=== PATIENT | male | born 1935 | race Caucasian/White ===

== ENCOUNTER 2018-09-06 15:26 | Outpatient (CLI) | payer MEDICARE, OTHER ==
--- NOTE | 2018-09-06 16:18 | RAD ---
PA AND LATERAL CHEST: Date: 09/06/18 HISTORY: Shortness of breath. Fatigue. Cough. COMPARISON: 01/04/18. FINDINGS: Cardiac silhouette is mildly enlarged. There is slight blunting of each lateral costophrenic angle, w hich may be related to tiny bilateral pleural effusions or mild pleural and parenchymal scarring. Vas cular calcifications are seen in the thoracic aorta. There is again right convex scoliosis with degen erative changes in the spine. IMPRESSION: 1. Suggestion of small bilateral pleural effusions and associated atelectasis. 2. Cardiomegaly without overt CHF. POS: [facility]
== END 2018-09-06 15:27 | disposition home or self-care (01) ==
LOC: BICRAD 15:26
PROVIDERS: ATTEND Specialist
DX: R06.02 Shortness of breath (principal); R06.00 Dyspnea, unspecified; R05 Cough; R53.82 Chronic fatigue, unspecified; I51.7 Cardiomegaly
CPT/HCPCS: 36415; 71046; 80048; 83880; 85027

== ENCOUNTER 2019-09-04 11:31 | Inpatient (IN) | payer MEDICARE, OTHER ==
[2019-09-04 12:21] LABS: #Lymphocytes 0.9 thou/uL (1.20-3.40); #Monocytes 0.8 thou/uL (0.11-0.59); #Neutrophils 10.6 thou/uL (1.40-6.50); %Eosinophils 0.3 % (0.0-10.0); %Lymphocytes 7.1 % (21.0-51.0); %Monocytes 6.2 % (0.0-10.0); %Neutrophils 86.4 % (42.0-75.0); Hemoglobin 9.4 g/dL (14.0-18.0); Mean Corpuscular HGB CONC 33.3 g/dL (32.0-36.0); Mean Corpuscular Hemoglobin 33.6 pg (27.0-31.0); Mean Platelet Volume 8.3 fL (7.4-10.4); Platelet Count 180 thou/uL (130-400); RBC Distribution Width 13.6 % (11.5-14.5); White Blood Cell (WBC) Count 12.2 thou/uL (4.8-10.8)
[2019-09-04] MEDS ORDERED: ADMIXTURE FEE IV SCH (12:30)
[2019-09-04] MEDS ORDERED: [UNRECOGNIZED DRUG - OTHER] IV SCH (12:30)
[2019-09-04] MEDS ORDERED: HUM PROTHROMBIN CPLX IV SCH (12:30)
[2019-09-04 12:36] LABS: INR-International Normal Ratio 2.6; PTT 43.4 SEC (22.9-36.1); Prothrombin Time 27.8 SEC (12.0-14.7)
[2019-09-04 12:39] LABS: ALT (SGPT) 10 U/L (8-55); AST (SGOT) 10 U/L (5-34); Albumin 3.2 g/dL (3.4-4.8); Alkaline Phosphatase 83 U/L (40-110); Anion Gap 12 mmol/L (10-20); BUN (Urea Nitrogen) 94 mg/dL (8.4-25.7); Bilirubin, Total 0.5 mg/dL (0.2-1.2); Calc. Creatinine Clearance 0 mL/min (70-130); Calcium 8.6 mg/dL (7.8-10.44); Carbon Dioxide 20 mmol/L (23-31); Chloride 109 mmol/L (98-107); Estimated GFR-MDRD 38; Globulin 2.1 g/dL (2.4-3.5); Glucose 125 mg/dL (83-110); Potassium 4.5 mmol/L (3.5-5.1); Protein, Total 5.3 g/dL (5.8-8.1); Sodium 136 mmol/L (136-145)
[2019-09-04] MEDS ORDERED: Pantoprazole 40 MG VIAL ONE (13:12)
[2019-09-04] MEDS ORDERED: Ondansetron PF 4 MG/2 ML Vial IVP PRN (16:30)
[2019-09-04] MEDS ORDERED: Ondansetron ODT 4 MG TAB SL PRN (16:30)
[2019-09-04 20:15] LABS: #Lymphocytes 1.2 thou/uL (1.20-3.40); #Monocytes 1.3 thou/uL (0.11-0.59); %Basophils 0.1 % (0.0-1.0); %Eosinophils 0.1 % (0.0-10.0); %Lymphocytes 7.7 % (21.0-51.0); %Monocytes 8.6 % (0.0-10.0); %Neutrophils 83.5 % (42.0-75.0); Hemoglobin 8.1 g/dL (14.0-18.0); Mean Corpuscular HGB CONC 33.6 g/dL (32.0-36.0); Mean Corpuscular Hemoglobin 33.8 pg (27.0-31.0); Mean Platelet Volume 8.6 fL (7.4-10.4); Platelet Count 168 thou/uL (130-400); RBC Distribution Width 13.8 % (11.5-14.5); White Blood Cell (WBC) Count 15.6 thou/uL (4.8-10.8)
--- NOTE | 2019-09-04 20:33 | PDOC.EVN ---
Event Note - Event Note Event Note: [id number] HP
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
[2019-09-04] MEDS: Acetaminophen 325 MG TAB PO PRN (22:10)
[2019-09-04] MEDS: Pantoprazole 80 MG in Sodium Chloride 0.9% 100 ML IVP SCH (23:40)
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
[2019-09-04] MEDS: Zolpidem Tartrate 5 MG TAB PO PRN (23:41)
[2019-09-05 06:46] LABS: INR-International Normal Ratio 1.4; Prothrombin Time 17.3 SEC (12.0-14.7)
[2019-09-05 06:48] LABS: #Neutrophils 14.5 thou/uL (1.40-6.50); %Basophils 0.1 % (0.0-1.0); %Eosinophils 0.2 % (0.0-10.0); %Lymphocytes 6.3 % (21.0-51.0); %Neutrophils 87.4 % (42.0-75.0); Hemoglobin 8.5 g/dL (14.0-18.0); Mean Corpuscular HGB CONC 34.7 g/dL (32.0-36.0); Mean Corpuscular Hemoglobin 33.9 pg (27.0-31.0); Mean Corpuscular Volume 97.7 fL (78.0-98.0); Mean Platelet Volume 8.7 fL (7.4-10.4); Platelet Count 163 thou/uL (130-400); RBC Distribution Width 14.2 % (11.5-14.5); White Blood Cell (WBC) Count 16.6 thou/uL (4.8-10.8)
[2019-09-05 07:07] LABS: Anion Gap 12 mmol/L (10-20); BUN (Urea Nitrogen) 90 mg/dL (8.4-25.7); Calc. Creatinine Clearance 34 mL/min (70-130); Calcium 8.2 mg/dL (7.8-10.44); Carbon Dioxide 18 mmol/L (23-31); Chloride 112 mmol/L (98-107); Estimated GFR-MDRD 39; Glucose 157 mg/dL (83-110); Potassium 4.7 mmol/L (3.5-5.1); Sodium 137 mmol/L (136-145)
[2019-09-05] MEDS ORDERED: FLU VACC TS2019-20(65YR UP)/PF 180 MCG/0.5 ML SYRINGE IM ONE (09:00)
[2019-09-05] MEDS ORDERED: Prevnar 13-Val Conj/PF 0.5 ML SYRINGE IM ONE (09:00)
[2019-09-05] MEDS: Pantoprazole 80 MG in Sodium Chloride 0.9% 100 ML IVP SCH ×2 (09:01→19:43)
[2019-09-05] MEDS: Acetaminophen 325 MG TAB PO PRN ×2 (09:02→14:19)
--- NOTE | 2019-09-05 15:55 | PDOC.EVN ---
Event Note - Event Note Event Note: Devon pedro pablo called for patient. Patient was sitting up on toilet having a bowel movement and reported a black stool. He instantly went pale and was unresponsive and patient was staring off into space. DEVON pedro pablo called by tech. Patient had very weak pulses on initial palpation, was tachypneic and was placed on 2L of oxygen. He was immediately laidd down into the bed after which the patient started talking and became responsive. Vitals: BP 103/68, HR 88, 100% room air, temp 97.5 General: alert, awake, oriented times three. Patient is more pink now CVS: RRR, no murmurs, rubs, gallops Lungs: CTAB Abdomen: + BS, mild LLQ tenderness, nondistended. Extremities: 2+ dorsal pulses Vasovagal syncope: patient improved s/p laying down. Will check CBC, CMP, lactic acid. Hospitalist was informed about devon chamorro
[2019-09-05] MEDS ORDERED: NAPROXEN SOD PO PRN (16:00)
[2019-09-05] MEDS ORDERED: DIPHENHYDRAMINE PO PRN (16:00)
--- NOTE | 2019-09-05 16:19 | PDOC.HOSPP ---
- Subjective Encounter Date: 09/05/19 Encounter Time: 16:17 Subjective: patient was doing okay this morning but had an episode of GI bleed/black stool and developped a vagal episode, Dr. Barnes at the bedside evaluated already - Objective Vital Signs & Weight: Vital Signs (12 hours) Temp Pulse Resp BP Pulse Ox 09/05/19 11:22 98.4 F 92 20 133/86 98 09/05/19 07:35 98.4 F 90 22 H 146/85 H 98 Weight Weight 165 lb 5.547 oz I&O: 09/04/19 09/05/19 09/06/19 06:59 06:59 06:59 Intake Total 760 Output Total 200 Balance 560 Result Diagrams: 09/05/19 05:34 09/05/19 05:34 Additional Labs: Accuchecks 09/05/19 15:46 POC Glucose 145 H Hospitalist ROS - Medication Medications: Active Medications Generic Name Dose Route Start Last Admin Trade Name Freq PRN Reason Stop Dose Admin Acetaminophen 650 mg 09/04/19 21:13 09/05/19 14:19 Tylenol PO 650 mg Q6H PRN Administration Mild Pain (1-3) Pantoprazole Sodium 80 mg/ 100 mls @ 10 mls/hr 09/04/19 13:15 09/05/19 09:01 Sodium Chloride IVP 100 mls INF NENA Administration Zolpidem Tartrate 5 mg 09/04/19 23:09 09/04/19 23:41 Ambien PO 5 mg HS PRN Administration Insomnia - Exam General Appearance: awake alert Eye: PERRL, anicteric sclera, scleral icterus ENT: dry oral mucosa Neck: supple, symmetric, no JVD, no thyromegaly, no lymphadenopathy, no carotid bruit, JVD Heart: RRR, no murmur, no gallops, no rubs, normal peripheral pulses, irregular , diminshed peripheral pulses, murmur present, II/IV, III/IV Respiratory: CTAB, no wheezes, no rales, no ronchi, normal chest expansion, no tachypnea, normal percussion, rales, rhonchi, tachypneic, wheezes Gastrointestinal: soft, non-tender, non-distended, normal bowel sounds, no palpable masses, no hepatomegaly, no splenomegaly, no bruit, no guarding, no rigidity, tender to palpation, distended, diminished bowl sounds, voluntary guarding Extremities: no cyanosis, no clubbing, no edema, 1+ LE edema, 2+ LE edema, clubbing Skin: normal turgor, no lesions, no rashes, tenting Hosp A/P (1) GI bleed Code(s): K92.2 - GASTROINTESTINAL HEMORRHAGE, UNSPECIFIED Status: Acute - Plan GI notified, H/H checked, held 2 units of PRBC, transfuse inf needed. Transferred to IMU
[2019-09-05 16:27] LABS: ALT (SGPT) 11 U/L (8-55); AST (SGOT) 13 U/L (5-34); Albumin 3.2 g/dL (3.4-4.8); Alkaline Phosphatase 75 U/L (40-110); Anion Gap 18 mmol/L (10-20); BUN (Urea Nitrogen) 88 mg/dL (8.4-25.7); Bilirubin, Total 0.7 mg/dL (0.2-1.2); Calc. Creatinine Clearance 29 mL/min (70-130); Calcium 8.3 mg/dL (7.8-10.44); Carbon Dioxide 14 mmol/L (23-31); Chloride 112 mmol/L (98-107); Estimated GFR-MDRD 33; Globulin 2.1 g/dL (2.4-3.5); Glucose 147 mg/dL (83-110); Potassium 4.9 mmol/L (3.5-5.1); Protein, Total 5.3 g/dL (5.8-8.1); Sodium 139 mmol/L (136-145)
[2019-09-05 16:35] LABS: Lactic Acid 6.6 mmol/L (0.5-2.2)
[2019-09-05 16:36] LABS: Hemoglobin 8.4 g/dL (14.0-18.0); Mean Corpuscular HGB CONC 33.7 g/dL (32.0-36.0); Mean Corpuscular Hemoglobin 33.7 pg (27.0-31.0); Mean Platelet Volume 8.4 fL (7.4-10.4); Platelet Count 181 thou/uL (130-400); RBC Distribution Width 14.8 % (11.5-14.5); Red Blood Cell (RBC) Count 2.48 mill/uL (4.70-6.10); White Blood Cell (WBC) Count 21.5 thou/uL (4.8-10.8)
[2019-09-05] MEDS: Mometasone 100 MCG HFA INHALER INH SCH (19:16)
[2019-09-05] MEDS: Carvedilol 6.25 MG TAB PO SCH (20:55)
[2019-09-05] MEDS: Melatonin 3 MG TAB PO SCH (20:56)
[2019-09-05] MEDS: Zolpidem Tartrate 5 MG TAB PO PRN (20:56)
[2019-09-05] MEDS ORDERED: VALERIAN ROOT PO SCH (21:00)
[2019-09-05] MEDS ORDERED: BILBERRY PO SCH (21:00)
--- NOTE | 2019-09-05 23:00 | PRG ---
DATE OF SERVICE: 09/05/2019 SUBJECTIVE: Mr. Limon passed one large black stool today. He stood up from the toilet and then had a syncopal episode, and Dontrell Auguste was called. He was transferred to the intermediate care unit. He has been doing okay since then. He has no abdominal pain. No nausea or vomiting. He is tolerating a liquid diet well. OBJECTIVE: VITAL SIGNS: Temperature 98.0, blood pressure 130/66, pulse 98. GENERAL: He is in no acute distress. He is pale. Alert and oriented x3. HEENT: Eyes have no scleral icterus. Oropharynx is clear without lesions. NECK: No cervical or supraclavicular lymphadenopathy. LUNGS: Clear to auscultation bilaterally. HEART: Regular rate and rhythm without murmur. ABDOMEN: Soft, nontender, nondistended. Bowel sounds are present. EXTREMITIES: 1+ pitting lower extremity edema. LABORATORY DATA: Hemoglobin is 8.4 today. White blood cell count 21.5, platelets 181. INR is down to 1.4. Creatinine 1.93. IMPRESSION: 1. Acute upper gastrointestinal bleed, presenting with melena and severe anemia. 2. Anemia of acute blood loss. 3. Anticoagulation with Xarelto and clopidogrel in an elderly patient with acute on chronic renal insufficiency. 4. Sternum pain, for which he has been taking NSAIDs. 5. History of atrial fibrillation and coronary artery disease. RECOMMENDATIONS: 1. Proton pump inhibitor IV drip. 2. We will allow more time for the clopidogrel and Xarelto to metabolize. 3. Plan for EGD on Monday morning. Job ID: [id number]
[2019-09-06 05:33] LABS: INR-International Normal Ratio 1.4; Prothrombin Time 16.8 SEC (12.0-14.7)
[2019-09-06 05:34] LABS: #Lymphocytes 1.6 thou/uL (1.20-3.40); #Monocytes 1.6 thou/uL (0.11-0.59); #Neutrophils 14.8 thou/uL (1.40-6.50); %Eosinophils 0.2 % (0.0-10.0); %Neutrophils 81.8 % (42.0-75.0); Hemoglobin 6.5 g/dL (14.0-18.0); Mean Corpuscular HGB CONC 34.3 g/dL (32.0-36.0); Mean Corpuscular Hemoglobin 34.3 pg (27.0-31.0); Mean Corpuscular Volume 99.8 fL (78.0-98.0); Mean Platelet Volume 8.2 fL (7.4-10.4); Platelet Count 165 thou/uL (130-400); RBC Distribution Width 15.2 % (11.5-14.5); Red Blood Cell (RBC) Count 1.91 mill/uL (4.70-6.10); White Blood Cell (WBC) Count 18.1 thou/uL (4.8-10.8)
[2019-09-06 05:50] LABS: Anion Gap 14 mmol/L (10-20); BUN (Urea Nitrogen) 93 mg/dL (8.4-25.7); Calc. Creatinine Clearance 32 mL/min (70-130); Carbon Dioxide 17 mmol/L (23-31); Chloride 114 mmol/L (98-107); Estimated GFR-MDRD 37; Glucose 124 mg/dL (83-110); Potassium 4.9 mmol/L (3.5-5.1); Sodium 140 mmol/L (136-145)
[2019-09-06] MEDS: Acetaminophen 325 MG TAB PO PRN (06:34)
[2019-09-06] MEDS: Pantoprazole 80 MG in Sodium Chloride 0.9% 100 ML IVP SCH ×2 (06:40→18:26)
[2019-09-06] MEDS: Mometasone 100 MCG HFA INHALER INH SCH (08:07)
[2019-09-06] MEDS ORDERED: [UNRECOGNIZED DRUG - OTHER] PO SCH (09:00)
[2019-09-06] MEDS ORDERED: GARLIC 500 MG PO SCH (09:00)
[2019-09-06] MEDS ORDERED: VITAMIN A PALMITATE PO SCH (09:00)
[2019-09-06] MEDS ORDERED: LUTEIN 40 MG PO SCH (09:00)
[2019-09-06] MEDS ORDERED: MAGNESIUM GLUCONATE PO SCH (09:00)
[2019-09-06] MEDS ORDERED: GINGER ROOT 550 MG PO SCH (09:00)
[2019-09-06] MEDS ORDERED: CALCIUM CARBONATE PO SCH (09:00)
[2019-09-06] MEDS ORDERED: SOURCHERRY PO SCH (09:00)
[2019-09-06] MEDS ORDERED: GRAPE SEED PO SCH (09:00)
[2019-09-06] MEDS ORDERED: BROMELAINS PO SCH (09:00)
[2019-09-06] MEDS ORDERED: TURMERIC 400 MG PO SCH (09:00)
[2019-09-06] MEDS ORDERED: CALCIUM CITRATE PO SCH (09:00)
[2019-09-06] MEDS ORDERED: HAWTHORN BERRY PO SCH (09:00)
[2019-09-06] MEDS ORDERED: LACTOBACILLUS ACIDOPHILUS PO SCH (09:00)
[2019-09-06] MEDS ORDERED: CELERY PO SCH (09:00)
[2019-09-06] MEDS ORDERED: CAYENNE PO SCH (09:00)
[2019-09-06] MEDS ORDERED: SELENIUM 200 MCG PO SCH (09:00)
[2019-09-06] MEDS ORDERED: MAGNESIUM OXIDE PO SCH (09:00)
[2019-09-06] MEDS ORDERED: Non-Formulary Item 1 EACH (Lifitegrast [Xiidra] 1 EACH) OP SCH (09:00)
[2019-09-06] MEDS: Spironolactone 25 MG TAB PO SCH (09:14)
[2019-09-06] MEDS: Fish Oil 1,000 MG CAP PO SCH (09:15)
[2019-09-06] MEDS: Montelukast Sodium 10 mg Tablet PO SCH (09:15)
[2019-09-06] MEDS: Ubidecarenone 50 MG CAP PO SCH (09:15)
[2019-09-06] MEDS: Carvedilol 6.25 MG TAB PO SCH ×2 (09:15→20:31)
[2019-09-06] MEDS: Clopidogrel Bisulfate 75 MG TAB PO SCH (09:16)
[2019-09-06] MEDS: Lactinex Tablet PO SCH (09:16)
[2019-09-06] MEDS: Isosorbide Mononitrate (ER) 30 MG TAB PO SCH (09:16)
--- NOTE | 2019-09-06 10:33 | RAD ---
Frontal radiograph chest: 09/06/2019 COMPARISON: 09/06/2018 HISTORY: Congestive heart failure FINDINGS: The heart and mediastinal contours appear grossly unremarkable. There is atherosclerotic ca lcification of the aortic arch. No pneumothorax or pleural fluid. No focal consolidation or alveolar edema. IMPRESSION: No focal consolidation or alveolar edema.
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
--- NOTE | 2019-09-06 11:39 | PDOC.HOSPP ---
- Subjective Encounter Date: 09/06/19 Encounter Time: 11:37 Subjective: had blood transfused over night, GI is planning for EGD tomorrow - Objective Vital Signs & Weight: Vital Signs (12 hours) Temp Pulse Resp Pulse Ox 09/06/19 11:16 98.0 F 09/06/19 09:05 97.9 F 09/06/19 08:07 88 22 H 98 09/06/19 07:47 97.9 F 09/06/19 07:40 98 09/06/19 03:59 98.2 F 09/05/19 23:41 97.7 F Weight Weight 165 lb 5.547 oz Most Recent Monitor Data Heart Rate from ECG 74 NIBP 119/57 NIBP BP-Mean 77 Respiration from ECG 25 SpO2 100 I&O: 09/05/19 09/06/19 09/07/19 06:59 06:59 06:59 Intake Total 760 720 350 Output Total 200 Balance 560 720 350 Result Diagrams: 09/06/19 05:16 09/06/19 05:16 Additional Labs: Accuchecks 09/05/19 15:46 POC Glucose 145 H Hospitalist ROS - Medication Medications: Active Medications Generic Name Dose Route Start Last Admin Trade Name Freq PRN Reason Stop Dose Admin Acetaminophen 650 mg 09/04/19 21:13 09/06/19 06:34 Tylenol PO 650 mg Q6H PRN Administration Mild Pain (1-3) Acidophilus 1 tab 09/06/19 09:00 09/06/19 09:16 Floranex PO 1 tab DAILY NENA Administration Carvedilol 6.25 mg 09/05/19 21:00 09/06/19 09:15 Coreg PO 6.25 mg BID NENA Administration Cholecalciferol 300 units 09/06/19 09:00 09/06/19 09:15 Vitamin D3 PO 300 units DAILY NENA Administration Clopidogrel Bisulfate 75 mg 09/06/19 09:00 09/06/19 09:16 Plavix PO 75 mg DAILY NENA Administration Coenzyme Q10 100 mg 09/06/19 09:00 09/06/19 09:15 Coenzyme Q10 PO 100 mg DAILY NENA Administration Fish Oil 1,000 mg 09/06/19 09:00 09/06/19 09:15 Fish Oil PO 1,000 mg DAILY NENA Administration Pantoprazole Sodium 80 mg/ 100 mls @ 10 mls/hr 09/04/19 13:15 09/06/19 06:40 Sodium Chloride IVP 100 mls INF NENA Administration Isosorbide Mononitrate 30 mg 09/06/19 09:00 09/06/19 09:16 Imdur Er PO 30 mg DAILY NENA Administration Melatonin 1.5 mg 09/05/19 21:00 09/05/19 20:56 Melatonin PO 1.5 mg HS NENA Administration Montelukast Sodium 10 mg 09/06/19 09:00 09/06/19 09:15 Singulair PO 10 mg DAILY NENA Administration Pantoprazole Sodium 40 mg 09/06/19 09:00 09/06/19 09:16 Protonix PO Not Given DAILY NENA Ranolazine 500 mg 09/05/19 21:00 09/06/19 09:16 Ranexa PO 500 mg BID NENA Administration Spironolactone 25 mg 09/06/19 09:00 09/06/19 09:14 Aldactone PO 25 mg DAILY NENA Administration Zolpidem Tartrate 5 mg 09/04/19 23:09 09/05/19 20:56 Ambien PO 5 mg HS PRN Administration Insomnia - Exam General Appearance: NAD, awake alert, ill appearing Eye: PERRL, anicteric sclera, scleral icterus ENT: normocephalic atraumatic, no oropharyngeal lesions, moist mucosa, dry oral mucosa Neck: supple, symmetric, no JVD, no thyromegaly, no lymphadenopathy, no carotid bruit, JVD Heart: RRR, no murmur, no gallops, no rubs, normal peripheral pulses, irregular , diminshed peripheral pulses, murmur present, II/IV, III/IV Respiratory: CTAB, no wheezes, no rales, no ronchi, normal chest expansion, no tachypnea, normal percussion, rales, rhonchi, tachypneic, wheezes Gastrointestinal: soft, non-tender, non-distended, normal bowel sounds, no palpable masses, no hepatomegaly, no splenomegaly, no bruit, no guarding, no rigidity, tender to palpation, distended, diminished bowl sounds, voluntary guarding Extremities: no cyanosis, no clubbing, no edema, 1+ LE edema, 2+ LE edema, clubbing Hosp A/P (1) GI bleed Code(s): K92.2 - GASTROINTESTINAL HEMORRHAGE, UNSPECIFIED Status: Acute - Plan GI notified, H/H checked, held 2 units of PRBC, transfuse inf needed. Transferred to IMU. EGD tomorrow as per GI, apreciate the input.
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
[2019-09-06] MEDS: Mometasone/Formoterol 120 PUFF INHALER INH SCH (19:18)
[2019-09-06] MEDS: Zolpidem Tartrate 5 MG TAB PO PRN (20:31)
[2019-09-06] MEDS: Melatonin 3 MG TAB PO SCH (20:31)
[2019-09-07] MEDS: Pantoprazole 80 MG in Sodium Chloride 0.9% 100 ML IVP SCH (05:46)
[2019-09-07] MEDS: Carvedilol 6.25 MG TAB PO SCH ×2 (05:46→20:56)
[2019-09-07 06:00] LABS: #Eosinphils 0.1 thou/uL (0.0-0.7); #Lymphocytes 1.7 thou/uL (1.20-3.40); #Monocytes 1.7 thou/uL (0.11-0.59); #Neutrophils 8.6 thou/uL (1.40-6.50); %Eosinophils 0.7 % (0.0-10.0); %Lymphocytes 14.2 % (21.0-51.0); %Monocytes 13.8 % (0.0-10.0); %Neutrophils 71.3 % (42.0-75.0); Hemoglobin 7.6 g/dL (14.0-18.0); Mean Corpuscular HGB CONC 34.4 g/dL (32.0-36.0); Mean Corpuscular Hemoglobin 33.2 pg (27.0-31.0); Mean Corpuscular Volume 96.7 fL (78.0-98.0); Mean Platelet Volume 7.9 fL (7.4-10.4); Platelet Count 142 thou/uL (130-400); RBC Distribution Width 14.7 % (11.5-14.5); Red Blood Cell (RBC) Count 2.27 mill/uL (4.70-6.10); White Blood Cell (WBC) Count 12.1 thou/uL (4.8-10.8)
[2019-09-07 06:22] LABS: Anion Gap 10 mmol/L (10-20); BUN (Urea Nitrogen) 54 mg/dL (8.4-25.7); Calc. Creatinine Clearance 43 mL/min (70-130); Calcium 7.8 mg/dL (7.8-10.44); Carbon Dioxide 21 mmol/L (23-31); Chloride 111 mmol/L (98-107); Estimated GFR-MDRD 52; Glucose 103 mg/dL (83-110); Potassium 4.3 mmol/L (3.5-5.1); Sodium 138 mmol/L (136-145)
[2019-09-07] MEDS: Mometasone/Formoterol 120 PUFF INHALER INH SCH ×2 (07:52→18:27)
[2019-09-07] MEDS ORDERED: PROPOFOL 200 MG/20 ML VIAL ONE (08:19)
[2019-09-07] MEDS ORDERED: Promethazine HCl 25 MG/ML VIAL IM PRN (08:53)
[2019-09-07] MEDS ORDERED: Ondansetron HCl/PF 4 MG/2 ML Vial IVP PRN (08:53)
--- NOTE | 2019-09-07 09:25 | OP ---
DATE OF PROCEDURE: 09/07/2019 PROCEDURE PERFORMED: Esophagogastroduodenoscopy with biopsy, control of hemorrhage. INDICATION FOR PROCEDURE: Melena, anemia while on anticoagulation. DESCRIPTION OF PROCEDURE: After the risks and benefits of the procedure were explained to the patient including risks of bleeding, infection, perforation, reactions to anesthesia, aspiration, and/or pain, informed consent was obtained. The patient was then taken to the endoscopy suite, where he was placed in the left lateral decubitus position. Upon achieving proper position, deep sedation was administered via propofol and anesthesia support. Once adequate sedation was achieved, the standard gastroscope was introduced into the mouth with intubation of the esophagus, stomach, and the proximal small intestines with the findings listed below. The patient tolerated the procedure well with no immediate perioperative complications. Upon conclusion of the procedure, all equipment was removed from the patient and he was transferred to PACU in satisfactory condition. FINDINGS: Esophagus: Normal-appearing mucosa was seen in the proximal, mid, and distal esophagus. There was no evidence of erosions, ulcerations, mass, lesions, or active/recent bleeding. Stomach: Normal-appearing mucosa was seen in the gastric cardia, fundus, body, and greater curvature. However, 7 to 8 scattered erosions were seen in the gastric antrum and along the incisura itself and no evidence of overt ulceration. With these erosions, there was only slightly increased mucosal erythema, but no evidence of active or recent bleeding. Multiple biopsies were taken from this region and placed in a specimen jar for further evaluation. Otherwise, there was no evidence of overt ulceration, mass, lesions, or active/recent bleeding in this region. Duodenum: Normal-appearing mucosa was seen within the duodenal bulb and second portion of the duodenum. However, on slow withdrawal through the duodenal sweep, a 5 to 6 superficial ulceration was seen along the anterior side of the duodenum. Initially, it did not exhibit any evidence of active or recent bleeding, but with manipulation of the scope, there was some mild oozing of blood along the superior aspect of this ulceration. This bleeding was then treated with bipolar cauterization with good hemostasis achieved afterwards. There was also an area underneath the ulceration of a much smaller ulceration measuring 2 to 3 mm in size that did exhibit some mild oozing of blood as well. This was successfully treated with bipolar cauterization as well. At the end of the maneuver, there was no evidence of active bleeding. There was no evidence of mass lesions in this region either. IMPRESSION: 1. A 5-to 6-mm linear ulceration at the duodenal sweep exhibiting mild oozing of blood, now status post bipolar cauterization (most likely source of recent bleeding). 2. A 2-to 3-mm ulceration along the inferior aspect of the duodenal sweep with mild oozing of blood, status post bipolar cauterization. 3. Scattered antral and incisura erosions concerning for Helicobacter pylori versus NSAID gastritis, status post biopsies. RECOMMENDATIONS: 1. We would continue to trend the H and H and transfuse as necessary to maintain an H and H of 06/09. 2. We would continue to monitor clinically for signs of active GI bleeding. 3. We would continue PPI drip for the next 24 hours, then discontinue in favor of pantoprazole 40 mg b.i.d. 4. Could continue Plavix daily in light of his cardiac status, but would hold any further anticoagulation for the next 48 to 72 hours, then restart. 5. Can advance the patient's diet to clear liquid diet. 6. The patient will need to be monitored for at least the next 48 hours for signs of continued bleeding with further intervention if needed. Job ID: [id number]
[2019-09-07] MEDS: Fish Oil 1,000 MG CAP PO SCH (10:04)
[2019-09-07] MEDS: Spironolactone 25 MG TAB PO SCH (10:04)
[2019-09-07] MEDS: Isosorbide Mononitrate (ER) 30 MG TAB PO SCH (10:04)
[2019-09-07] MEDS: Lactinex Tablet PO SCH (10:04)
[2019-09-07] MEDS: Montelukast Sodium 10 mg Tablet PO SCH (10:04)
[2019-09-07] MEDS: Ubidecarenone 50 MG CAP PO SCH (10:05)
[2019-09-07] MEDS: Clopidogrel Bisulfate 75 MG TAB PO SCH (10:05)
--- NOTE | 2019-09-07 11:25 | PRG ---
DATE OF SERVICE: 09/07/2019 SUBJECTIVE: This morning, he is better. OBJECTIVE: VITAL SIGNS: Temperature 97, blood pressure 120/60, pulse 80, respiratory rate 18, saturations 90%. GENERAL: No distress. CHEST: No wheezing, crackles. CARDIAC: Normal S1, S2. No gallops. ABDOMEN: No masses. LABORATORY DATA: H and H 7.6 and 22, platelet count 142. Creatinine 1.3. IMPRESSION: GI bleed, status post endoscopy. The patient's diet is going to be advanced. Continue supportive care. We will follow at a distance once he leaves the ICU. Job ID: [id number]
--- NOTE | 2019-09-07 14:09 | PDOC.HOSPP ---
- Subjective Encounter Date: 09/07/19 Encounter Time: 12:35 Subjective: Expresses no complaint..... - Objective Vital Signs & Weight: Vital Signs (12 hours) Temp BP 09/07/19 10:40 97.9 F 09/07/19 07:11 97.5 F L 09/07/19 05:46 122/63 09/07/19 03:46 97.5 F L Weight Weight 165 lb 5.547 oz Most Recent Monitor Data Heart Rate from ECG 67 NIBP 119/68 NIBP BP-Mean 85 Respiration from ECG 22 SpO2 100 I&O: 09/06/19 09/07/19 09/08/19 06:59 06:59 06:59 Intake Total 720 1790 Balance 720 1790 Result Diagrams: 09/07/19 05:24 09/07/19 05:24 Hospitalist ROS - Medication Medications: Active Medications Generic Name Dose Route Start Last Admin Trade Name Freq PRN Reason Stop Dose Admin Acetaminophen 650 mg 09/04/19 21:13 09/06/19 06:34 Tylenol PO 650 mg Q6H PRN Administration Mild Pain (1-3) Acidophilus 1 tab 09/06/19 09:00 09/07/19 10:04 Floranex PO 1 tab DAILY NENA Administration Carvedilol 6.25 mg 09/05/19 21:00 09/07/19 05:46 Coreg PO 6.25 mg BID NENA Administration Cholecalciferol 300 units 09/06/19 09:00 09/07/19 10:03 Vitamin D3 PO 300 units DAILY NENA Administration Clopidogrel Bisulfate 75 mg 09/06/19 09:00 09/07/19 10:05 Plavix PO 75 mg DAILY NENA Administration Coenzyme Q10 100 mg 09/06/19 09:00 09/07/19 10:05 Coenzyme Q10 PO 100 mg DAILY NENA Administration Fish Oil 1,000 mg 09/06/19 09:00 09/07/19 10:04 Fish Oil PO 1,000 mg DAILY NENA Administration Pantoprazole Sodium 80 mg/ 100 mls @ 10 mls/hr 09/04/19 13:15 09/07/19 05:46 Sodium Chloride IVP 100 mls INF NENA Administration Isosorbide Mononitrate 30 mg 09/06/19 09:00 09/07/19 10:04 Imdur Er PO 30 mg DAILY NENA Administration Melatonin 1.5 mg 09/05/19 21:00 09/06/19 20:31 Melatonin PO 1.5 mg HS NENA Administration Mometasone Furoate/Formoterol Fumar 2 puff 09/06/19 18:30 09/07/19 07:52 Dulera 200 Mcg/5 Mcg Inhaler INH Not Given BID-RT NENA Montelukast Sodium 10 mg 09/06/19 09:00 09/07/19 10:04 Singulair PO 10 mg DAILY NENA Administration Pantoprazole Sodium 40 mg 09/06/19 09:00 09/07/19 10:04 Protonix PO 40 mg DAILY NENA Administration Ranolazine 500 mg 09/05/19 21:00 09/07/19 10:04 Ranexa PO 500 mg BID NENA Administration Spironolactone 25 mg 09/06/19 09:00 09/07/19 10:04 Aldactone PO 25 mg DAILY NENA Administration Zolpidem Tartrate 5 mg 09/04/19 23:09 09/06/19 20:31 Ambien PO 5 mg HS PRN Administration Insomnia - Exam General Appearance: NAD Eye: anicteric sclera Neck: no JVD Heart: RRR Respiratory: CTAB Gastrointestinal: soft, non-tender Extremities: no edema Neurological: no focal deficits Psychiatric: normal affect Hosp A/P (1) Atrial fibrillation Code(s): I48.91 - UNSPECIFIED ATRIAL FIBRILLATION Status: Acute (2) AI (acute kidney injury) Code(s): N17.9 - ACUTE KIDNEY FAILURE, UNSPECIFIED Status: Acute Plan: Resolving (3) History of CVA (cerebrovascular accident) Code(s): Z86.73 - PRSNL HX OF TIA (TIA), AND CEREB INFRC W/O RESID DEFICITS Status: Acute (4) GI bleed Code(s): K92.2 - GASTROINTESTINAL HEMORRHAGE, UNSPECIFIED Status: Acute Plan: s/p EGD. (5) Acute blood loss anemia Code(s): D62 - ACUTE POSTHEMORRHAGIC ANEMIA Status: Acute Plan: S/P transfusion - Plan f/u with GI.. Anticoagulant on hold. F/U hb/hct
[2019-09-07] MEDS: Acetaminophen 325 MG TAB PO PRN (14:41)
[2019-09-07 17:02] LABS: Hemoglobin 7.6 g/dL (14.0-18.0); Mean Corpuscular HGB CONC 34.6 g/dL (32.0-36.0); Mean Corpuscular Hemoglobin 33.8 pg (27.0-31.0); Mean Corpuscular Volume 97.4 fL (78.0-98.0); Mean Platelet Volume 7.8 fL (7.4-10.4); Platelet Count 140 thou/uL (130-400); RBC Distribution Width 15.1 % (11.5-14.5); Red Blood Cell (RBC) Count 2.24 mill/uL (4.70-6.10); White Blood Cell (WBC) Count 11.4 thou/uL (4.8-10.8)
[2019-09-07 17:21] LABS: Anisocytosis SLIGHT = 6-15 cells (100X) (0-5/hpf); Band 2 % (5-11); Eosinophils 1 % (0-10); Lymphocytes 15 % (21-51); MDiff Complete? YES; Monocytes 11 % (0-10); Neutrophil 71 % (42-75); Nucleated RBC 2 % (0); Platelet Morphology Comment Appears Adequate; Polychromasia MODERATE = 3-4 cells (100X) (0-2/hpf)
[2019-09-07] MEDS: Zolpidem Tartrate 5 MG TAB PO PRN (20:56)
[2019-09-07] MEDS: Melatonin 3 MG TAB PO SCH (20:57)
[2019-09-08] MEDS: Pantoprazole 80 MG in Sodium Chloride 0.9% 100 ML IVP SCH (03:15)
[2019-09-08 04:47] LABS: Band 3 % (5-11); Elliptocytes SLIGHT = 2-5 cells (100X) (0-1/hpf); Lymphocytes 20 % (21-51); MDiff Complete? YES; Mean Corpuscular HGB CONC 34.2 g/dL (32.0-36.0); Mean Corpuscular Hemoglobin 33.6 pg (27.0-31.0); Mean Corpuscular Volume 98.3 fL (78.0-98.0); Mean Platelet Volume 7.7 fL (7.4-10.4); Monocytes 14 % (0-10); Neutrophil 62 % (42-75); Platelet Count 136 thou/uL (130-400); Platelet Morphology Comment Appears Adequate; Polychromasia SLIGHT = 2-3 cells (100X) (0-2/hpf); RBC Distribution Width 15.4 % (11.5-14.5); Reactive Lymphocytes 1 % (0-10); Red Blood Cell (RBC) Count 2.09 mill/uL (4.70-6.10); White Blood Cell (WBC) Count 9.3 thou/uL (4.8-10.8)
[2019-09-08 04:50] LABS: Anion Gap 8 mmol/L (10-20); BUN (Urea Nitrogen) 34 mg/dL (8.4-25.7); Calc. Creatinine Clearance 49 mL/min (70-130); Calcium 7.6 mg/dL (7.8-10.44); Carbon Dioxide 22 mmol/L (23-31); Chloride 110 mmol/L (98-107); Estimated GFR-MDRD 61; Glucose 96 mg/dL (83-110); Sodium 136 mmol/L (136-145)
[2019-09-08] MEDS: Mometasone/Formoterol 120 PUFF INHALER INH SCH ×2 (07:40→18:41)
[2019-09-08] MEDS: Fish Oil 1,000 MG CAP PO SCH (08:55)
[2019-09-08] MEDS: Clopidogrel Bisulfate 75 MG TAB PO SCH (08:55)
[2019-09-08] MEDS: Ubidecarenone 50 MG CAP PO SCH (08:55)
[2019-09-08] MEDS: Montelukast Sodium 10 mg Tablet PO SCH (08:56)
[2019-09-08] MEDS: Isosorbide Mononitrate (ER) 30 MG TAB PO SCH (08:56)
[2019-09-08] MEDS: Lactinex Tablet PO SCH (08:56)
[2019-09-08] MEDS: Carvedilol 6.25 MG TAB PO SCH ×2 (08:56→20:40)
[2019-09-08] MEDS: Spironolactone 25 MG TAB PO SCH (08:57)
--- NOTE | 2019-09-08 11:10 | PRG ---
DATE OF SERVICE: 09/08/2019 SUBJECTIVE: Ar Limon still having a low GI bleed. H and H have dropped to 7 and 20. Underwent endoscopy, was cauterized. OBJECTIVE: VITAL SIGNS: Pulse 80, respirations 18, saturations 96%, and blood pressure 106/52. CHEST: No wheezing or crackles. CARDIAC: Normal S1 and S2. No gallops. ABDOMEN: No masses. ASSESSMENT: Gastrointestinal bleed, status post endoscopy. PLAN: Pulmonary will continue to follow in the MICU, ideally stabilized. He is going to receive transfusion and supportive care. Job ID: [id number]
--- NOTE | 2019-09-08 11:54 | PDOC.HOSPP ---
- Subjective Encounter Date: 09/08/19 Encounter Time: 15:00 Subjective: No new complaint... - Objective Vital Signs & Weight: Vital Signs (12 hours) Temp Pulse Resp BP Pulse Ox 09/08/19 11:11 98.2 F 09/08/19 08:56 127/67 09/08/19 07:49 98.8 F 09/08/19 07:40 71 18 98 09/08/19 07:31 97 09/08/19 03:48 98.6 F 09/08/19 00:00 99.8 F H Weight Weight 165 lb 5.547 oz Most Recent Monitor Data Heart Rate from ECG 71 NIBP 113/53 NIBP BP-Mean 73 Respiration from ECG 21 SpO2 100 I&O: 09/07/19 09/08/19 09/09/19 06:59 06:59 06:59 Intake Total 1790 940 0 Output Total 100 Balance 1790 840 0 Result Diagrams: 09/08/19 04:01 09/08/19 04:01 Hospitalist ROS - Medication Medications: Active Medications Generic Name Dose Route Start Last Admin Trade Name Freq PRN Reason Stop Dose Admin Acetaminophen 650 mg 09/04/19 21:13 09/07/19 14:41 Tylenol PO 650 mg Q6H PRN Administration Mild Pain (1-3) Acidophilus 1 tab 09/06/19 09:00 09/08/19 08:56 Floranex PO 1 tab DAILY NENA Administration Carvedilol 6.25 mg 09/05/19 21:00 09/08/19 08:56 Coreg PO 6.25 mg BID NENA Administration Cholecalciferol 300 units 09/06/19 09:00 09/08/19 08:56 Vitamin D3 PO 300 units DAILY NENA Administration Clopidogrel Bisulfate 75 mg 09/06/19 09:00 09/08/19 08:55 Plavix PO 75 mg DAILY NENA Administration Coenzyme Q10 100 mg 09/06/19 09:00 09/08/19 08:55 Coenzyme Q10 PO 100 mg DAILY NENA Administration Fish Oil 1,000 mg 09/06/19 09:00 09/08/19 08:55 Fish Oil PO 1,000 mg DAILY NENA Administration Pantoprazole Sodium 80 mg/ 100 mls @ 10 mls/hr 09/04/19 13:15 09/08/19 03:15 Sodium Chloride IVP 100 mls INF ENNA Administration Isosorbide Mononitrate 30 mg 09/06/19 09:00 09/08/19 08:56 Imdur Er PO 30 mg DAILY NENA Administration Melatonin 1.5 mg 09/05/19 21:00 09/07/19 20:57 Melatonin PO 1.5 mg HS NENA Administration Mometasone Furoate/Formoterol Fumar 2 puff 09/06/19 18:30 09/08/19 07:40 Dulera 200 Mcg/5 Mcg Inhaler INH 2 puff BID-RT NENA Administration Montelukast Sodium 10 mg 09/06/19 09:00 09/08/19 08:56 Singulair PO 10 mg DAILY NENA Administration Ranolazine 500 mg 09/05/19 21:00 09/08/19 08:55 Ranexa PO 500 mg BID NENA Administration Spironolactone 25 mg 09/06/19 09:00 09/08/19 08:57 Aldactone PO 25 mg DAILY NENA Administration Zolpidem Tartrate 5 mg 09/04/19 23:09 09/07/19 20:56 Ambien PO 5 mg HS PRN Administration Insomnia - Exam General Appearance: NAD Neck: no JVD Heart: RRR Respiratory: CTAB Gastrointestinal: soft Extremities: no edema Neurological: no weakness Psychiatric: normal affect Hosp A/P (1) Atrial fibrillation Code(s): I48.91 - UNSPECIFIED ATRIAL FIBRILLATION Status: Acute Plan: Off anticoagulants now.. (2) AI (acute kidney injury) Code(s): N17.9 - ACUTE KIDNEY FAILURE, UNSPECIFIED Status: Acute Plan: Resolved.. (3) History of CVA (cerebrovascular accident) Code(s): Z86.73 - PRSNL HX OF TIA (TIA), AND CEREB INFRC W/O RESID DEFICITS Status: Acute (4) GI bleed Code(s): K92.2 - GASTROINTESTINAL HEMORRHAGE, UNSPECIFIED Status: Acute Plan: hb/hct has decreased.. For RBC transfusion.. Had EGD yesterday.. (5) Acute blood loss anemia Code(s): D62 - ACUTE POSTHEMORRHAGIC ANEMIA Status: Acute Plan: As mentioned above.. - Plan f/u with GI.. Anticoagulant on hold. F/U hb/hct For transfusion today..
--- NOTE | 2019-09-08 15:52 | PRG ---
DATE OF SERVICE: 09/08/2019 REASON FOR CONSULTATION: Anemia, melena with upper GI bleed. SUBJECTIVE: The patient did well overnight with no acute events or problems. He denies any additional episodes of melena and has not had a bowel movement yet today per nursing staff. He did have a slight drop in his H and H overnight, however, and was receiving 2 units of PRBCs at the time of this evaluation. Otherwise, he denies any nausea, vomiting, fevers, chills, hematemesis, melena, hematochezia, dysphagia, or odynophagia. OBJECTIVE: VITAL SIGNS: Temperature 98.2, pulse 66, blood pressure 102/61, respiratory rate 11, saturating 100% on room air. GENERAL: The patient is lying in bed, in no acute distress. Alert and oriented x3. CARDIOVASCULAR: Regular rate and rhythm. RESPIRATORY: Clear to auscultation bilaterally. ABDOMEN: Normoactive bowel sounds. Soft, nontender, nondistended. EXTREMITIES: Trace bilateral lower extremity edema extending to mid justice. LABORATORY DATA: CBC with a white blood cell count of 9.3, hemoglobin 7, hematocrit 20.5, platelets 136. Chemistry with a sodium of 136, potassium 4, chloride 110, CO2 of 22, BUN 34, creatinine 1.14, glucose 96. IMAGING DATA: No current GI imaging is available for review. ASSESSMENT AND PLAN: 1. Acute gastrointestinal bleed with melena secondary to bleeding duodenal ulcers, status post bipolar cauterization. This may have been due to chronic NSAID use prior to admission while on anticoagulation with both Plavix and Xarelto. Currently with downtrending H and H with no observed evidence of further GI bleeding, which raises concern for either equalization of circulating blood volume or possible active GI bleeding. Will need further monitoring. 2. Chronic anticoagulation, on Xarelto and clopidogrel. We will continue to hold his Xarelto for another 24 hours at least given his recent instrumentation and GI bleeding prior to admission. However, the patient is still continue to take clopidogrel which could further contribute to GI bleeding, although per Cardiology notes, they are reluctant to hold this medication at this time. RECOMMENDATIONS: 1. Would continue pantoprazole 40 mg IV b.i.d. 2. Would continue to trend his H and H and transfuse as necessary to maintain an H and H of 7/21. 3. Continue to monitor clinically for signs of active GI bleeding. 4. We would continue Plavix for now, but continue to hold Xarelto for at least another 24 to 48 hours. Careful monitoring of GI bleeding is warranted given that he is still on anticoagulation after intervention/cautery. 5. Advance diet as tolerated. We will continue to follow. Please call with any questions. Job ID: [id number]
[2019-09-08 18:20] LABS: #Lymphocytes 1.1 thou/uL (1.20-3.40); #Monocytes 1.3 thou/uL (0.11-0.59); #Neutrophils 8.1 thou/uL (1.40-6.50); %Basophils 0.3 % (0.0-1.0); %Eosinophils 0.5 % (0.0-10.0); %Lymphocytes 10.7 % (21.0-51.0); %Monocytes 12.3 % (0.0-10.0); %Neutrophils 76.3 % (42.0-75.0); Mean Corpuscular HGB CONC 34.4 g/dL (32.0-36.0); Mean Corpuscular Volume 95.9 fL (78.0-98.0); Mean Platelet Volume 7.5 fL (7.4-10.4); Platelet Count 142 thou/uL (130-400); RBC Distribution Width 14.5 % (11.5-14.5); Red Blood Cell (RBC) Count 3.03 mill/uL (4.70-6.10); White Blood Cell (WBC) Count 10.6 thou/uL (4.8-10.8)
[2019-09-08] MEDS: Pantoprazole 40 MG VIAL IVP SCH (20:41)
[2019-09-08] MEDS: Melatonin 3 MG TAB PO SCH (20:41)
[2019-09-08] MEDS: Zolpidem Tartrate 5 MG TAB PO PRN (20:42)
[2019-09-09 06:45] LABS: Anion Gap 9 mmol/L (10-20); BUN (Urea Nitrogen) 21 mg/dL (8.4-25.7); Band 1 % (5-11); Calc. Creatinine Clearance 56 mL/min (70-130); Calcium 7.6 mg/dL (7.8-10.44); Carbon Dioxide 21 mmol/L (23-31); Chloride 108 mmol/L (98-107); Eosinophils 3 % (0-10); Estimated GFR-MDRD 70; Glucose 89 mg/dL (83-110); Hemoglobin 8.9 g/dL (14.0-18.0); Hypochromia SLIGHT = 6-15 cells (100X) (0-5/hpf); Lymphocytes 4 % (21-51); MDiff Complete? YES; Mean Corpuscular HGB CONC 34.7 g/dL (32.0-36.0); Mean Corpuscular Hemoglobin 33.4 pg (27.0-31.0); Mean Corpuscular Volume 96.1 fL (78.0-98.0); Mean Platelet Volume 7.8 fL (7.4-10.4); Monocytes 11 % (0-10); Neutrophil 81 % (42-75); Nucleated RBC 1 % (0); Platelet Count 131 thou/uL (130-400); Platelet Morphology Comment Appears Adequate; Potassium 4.1 mmol/L (3.5-5.1); RBC Distribution Width 14.9 % (11.5-14.5); Red Blood Cell (RBC) Count 2.68 mill/uL (4.70-6.10); Sodium 134 mmol/L (136-145); White Blood Cell (WBC) Count 8.3 thou/uL (4.8-10.8)
[2019-09-09] MEDS: Mometasone/Formoterol 120 PUFF INHALER INH SCH ×2 (08:11→18:28)
[2019-09-09] MEDS: Pantoprazole 40 MG VIAL IVP SCH ×2 (08:45→20:29)
[2019-09-09] MEDS: Lactinex Tablet PO SCH (08:45)
[2019-09-09] MEDS: Montelukast Sodium 10 mg Tablet PO SCH (08:45)
[2019-09-09] MEDS: Ubidecarenone 50 MG CAP PO SCH (08:45)
[2019-09-09] MEDS: Spironolactone 25 MG TAB PO SCH (08:46)
[2019-09-09] MEDS: Isosorbide Mononitrate (ER) 30 MG TAB PO SCH (08:46)
[2019-09-09] MEDS: Clopidogrel Bisulfate 75 MG TAB PO SCH (08:46)
[2019-09-09] MEDS: Fish Oil 1,000 MG CAP PO SCH (08:46)
[2019-09-09] MEDS: Carvedilol 6.25 MG TAB PO SCH ×2 (08:46→20:28)
[2019-09-09] MEDS ORDERED: Sodium Chloride 0.9% 1,000 ML IV SCH ×2 (11:00)
--- NOTE | 2019-09-09 11:02 | PDOC.HOSPP ---
- Subjective Encounter Date: 09/09/19 Encounter Time: 11:00 Subjective: blood pr during overnite - Objective Vital Signs & Weight: Vital Signs (12 hours) Temp BP 09/09/19 08:46 117/73 09/09/19 07:15 98.8 F 09/09/19 03:55 98.8 F 09/08/19 23:29 99.4 F Weight Weight 165 lb 5.547 oz Most Recent Monitor Data Heart Rate from ECG 73 NIBP 120/74 NIBP BP-Mean 89 Respiration from ECG 13 SpO2 100 I&O: 09/08/19 09/09/19 09/10/19 06:59 06:59 06:59 Intake Total 940 1520 Output Total 100 Balance 840 1520 Result Diagrams: 09/09/19 05:39 09/09/19 05:39 Hospitalist ROS - Medication Medications: Active Medications Generic Name Dose Route Start Last Admin Trade Name Freq PRN Reason Stop Dose Admin Acetaminophen 650 mg 09/04/19 21:13 09/07/19 14:41 Tylenol PO 650 mg Q6H PRN Administration Mild Pain (1-3) Acidophilus 1 tab 09/06/19 09:00 09/09/19 08:45 Floranex PO 1 tab DAILY NENA Administration Carvedilol 6.25 mg 09/05/19 21:00 09/09/19 08:46 Coreg PO 6.25 mg BID NENA Administration Cholecalciferol 300 units 09/06/19 09:00 09/09/19 08:45 Vitamin D3 PO 300 units DAILY NENA Administration Clopidogrel Bisulfate 75 mg 09/06/19 09:00 09/09/19 08:46 Plavix PO 75 mg DAILY NENA Administration Coenzyme Q10 100 mg 09/06/19 09:00 09/09/19 08:45 Coenzyme Q10 PO 100 mg DAILY NENA Administration Fish Oil 1,000 mg 09/06/19 09:00 09/09/19 08:46 Fish Oil PO 1,000 mg DAILY NENA Administration Isosorbide Mononitrate 30 mg 09/06/19 09:00 09/09/19 08:46 Imdur Er PO 30 mg DAILY NENA Administration Melatonin 1.5 mg 09/05/19 21:00 09/08/19 20:41 Melatonin PO 1.5 mg HS NENA Administration Mometasone Furoate/Formoterol Fumar 2 puff 09/06/19 18:30 09/09/19 08:11 Dulera 200 Mcg/5 Mcg Inhaler INH 2 puff BID-RT NENA Administration Montelukast Sodium 10 mg 09/06/19 09:00 09/09/19 08:45 Singulair PO 10 mg DAILY NENA Administration Pantoprazole Sodium 40 mg 09/08/19 21:00 09/09/19 08:45 Protonix IVP 40 mg Q12HR NENA Administration Ranolazine 500 mg 09/05/19 21:00 09/09/19 08:45 Ranexa PO 500 mg BID NENA Administration Spironolactone 25 mg 09/06/19 09:00 09/09/19 08:46 Aldactone PO 25 mg DAILY NENA Administration Zolpidem Tartrate 5 mg 09/04/19 23:09 09/08/19 20:42 Ambien PO 5 mg HS PRN Administration Insomnia - Exam Neck: no JVD Heart: RRR, no murmur Respiratory: CTAB Gastrointestinal: soft, normal bowel sounds Extremities: no edema Hosp A/P (1) Peptic ulcer disease Code(s): K27.9 - PEPTIC ULC, SITE UNSP, UNSP AC OR CHR, W/O HEMOR OR PERF Status: Acute (2) Acute blood loss anemia Code(s): D62 - ACUTE POSTHEMORRHAGIC ANEMIA Status: Acute (3) Atrial fibrillation Code(s): I48.91 - UNSPECIFIED ATRIAL FIBRILLATION Status: Acute Qualifiers: Atrial fibrillation type: unspecified Qualified Code(s): I48.91 - Unspecified atrial fibrillation (4) GI bleed Code(s): K92.2 - GASTROINTESTINAL HEMORRHAGE, UNSPECIFIED Status: Acute Qualifiers: GI bleed type/associated pathology: duodenal ulcer Qualified Code(s): K26.4 - Chronic or unspecified duodenal ulcer with hemorrhage - Plan hpotensive at 90/60 NS bolus, then NS at 1ooml/hr protonix 40 q12h npo, lizzy GI re rpt EGD rpt H&H
--- NOTE | 2019-09-09 11:06 | PRG ---
DATE OF SERVICE: 09/09/2019 SUBJECTIVE: This morning, he is better. His H and H are 8 and 25. OBJECTIVE: VITAL SIGNS: Blood pressure 117/73, temperature 98, respirations 18, pulse 80. CHEST: Decreased breath sounds. No wheezing. CARDIAC: Normal S1 and S2. No gallops. ABDOMEN: No masses. ASSESSMENT AND PLAN: 1. Upper gastrointestinal bleed status post endoscopy. 2. Advanced age. Continue Protonix. Supportive care. They are holding his anticoagulation for the time being. Disposition as per GI. Job ID: [id number]
[2019-09-09 11:32] LABS: Hemoglobin 9.2 g/dL (14.0-18.0); Platelet Count 136 thou/uL (130-400)
[2019-09-09] MEDS: Acetaminophen 325 MG TAB PO PRN (16:46)
[2019-09-09] MEDS: Melatonin 3 MG TAB PO SCH (20:29)
[2019-09-09] MEDS: Zolpidem Tartrate 5 MG TAB PO PRN (20:38)
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
--- NOTE | 2019-09-10 07:27 | PDOC.HOSPP ---
- Subjective Encounter Date: 09/10/19 Encounter Time: 07:25 Subjective: feels good, no bleeding - Objective Vital Signs & Weight: Vital Signs (12 hours) Temp BP Pulse Ox 09/10/19 03:42 97.9 F 09/09/19 23:45 98.8 F 09/09/19 20:28 117/73 09/09/19 20:00 98 09/09/19 19:43 99.1 F Weight Weight 166 lb 8 oz Most Recent Monitor Data Heart Rate from ECG 65 NIBP 147/76 NIBP BP-Mean 99 Respiration from ECG 13 SpO2 97 I&O: 09/09/19 09/10/19 09/11/19 06:59 06:59 06:59 Intake Total 1520 1840 Output Total 550 Balance 1520 1290 Result Diagrams: 09/09/19 11:22 09/09/19 05:39 Hospitalist ROS - Medication Medications: Active Medications Generic Name Dose Route Start Last Admin Trade Name Freq PRN Reason Stop Dose Admin Acetaminophen 650 mg 09/04/19 21:13 09/09/19 16:46 Tylenol PO 650 mg Q6H PRN Administration Mild Pain (1-3) Acidophilus 1 tab 09/06/19 09:00 09/09/19 08:45 Floranex PO 1 tab DAILY NENA Administration Carvedilol 6.25 mg 09/05/19 21:00 09/09/19 20:28 Coreg PO 6.25 mg BID NENA Administration Cholecalciferol 300 units 09/06/19 09:00 09/09/19 08:45 Vitamin D3 PO 300 units DAILY NENA Administration Clopidogrel Bisulfate 75 mg 09/06/19 09:00 09/09/19 08:46 Plavix PO 75 mg DAILY NENA Administration Coenzyme Q10 100 mg 09/06/19 09:00 09/09/19 08:45 Coenzyme Q10 PO 100 mg DAILY NENA Administration Fish Oil 1,000 mg 09/06/19 09:00 09/09/19 08:46 Fish Oil PO 1,000 mg DAILY NENA Administration Isosorbide Mononitrate 30 mg 09/06/19 09:00 09/09/19 08:46 Imdur Er PO 30 mg DAILY NENA Administration Melatonin 1.5 mg 09/05/19 21:00 09/09/19 20:29 Melatonin PO 1.5 mg HS NENA Administration Mometasone Furoate/Formoterol Fumar 2 puff 09/06/19 18:30 09/09/19 18:28 Dulera 200 Mcg/5 Mcg Inhaler INH 2 puff BID-RT NENA Administration Montelukast Sodium 10 mg 09/06/19 09:00 09/09/19 08:45 Singulair PO 10 mg DAILY NENA Administration Pantoprazole Sodium 40 mg 09/08/19 21:00 09/09/19 20:29 Protonix IVP 40 mg Q12HR NENA Administration Ranolazine 500 mg 09/05/19 21:00 09/09/19 20:28 Ranexa PO 500 mg BID NENA Administration Spironolactone 25 mg 09/06/19 09:00 09/09/19 08:46 Aldactone PO 25 mg DAILY NENA Administration Zolpidem Tartrate 5 mg 09/04/19 23:09 09/09/19 20:38 Ambien PO 5 mg HS PRN Administration Insomnia - Exam General Appearance: awake alert Neck: no JVD Heart: irregular Respiratory: CTAB Gastrointestinal: soft, normal bowel sounds Extremities: no edema Hosp A/P (1) Peptic ulcer disease Code(s): K27.9 - PEPTIC ULC, SITE UNSP, UNSP AC OR CHR, W/O HEMOR OR PERF Status: Acute (2) Acute blood loss anemia Code(s): D62 - ACUTE POSTHEMORRHAGIC ANEMIA Status: Acute (3) Atrial fibrillation Code(s): I48.91 - UNSPECIFIED ATRIAL FIBRILLATION Status: Acute Qualifiers: Atrial fibrillation type: unspecified Qualified Code(s): I48.91 - Unspecified atrial fibrillation (4) GI bleed Code(s): K92.2 - GASTROINTESTINAL HEMORRHAGE, UNSPECIFIED Status: Acute Qualifiers: GI bleed type/associated pathology: duodenal ulcer Qualified Code(s): K26.4 - Chronic or unspecified duodenal ulcer with hemorrhage - Plan cbc pending if Hg stable, transfer out imcu po ppi discuss with GI/Card timing of anticoag
[2019-09-10 07:53] LABS: #Eosinphils 0.3 thou/uL (0.0-0.7); #Monocytes 1.4 thou/uL (0.11-0.59); %Eosinophils 2.4 % (0.0-10.0); %Lymphocytes 9.7 % (21.0-51.0); %Neutrophils 74.8 % (42.0-75.0); Hemoglobin 10.1 g/dL (14.0-18.0); Mean Corpuscular HGB CONC 32.9 g/dL (32.0-36.0); Mean Corpuscular Hemoglobin 32.3 pg (27.0-31.0); Mean Corpuscular Volume 98.1 fL (78.0-98.0); Mean Platelet Volume 7.8 fL (7.4-10.4); Platelet Count 157 thou/uL (130-400); RBC Distribution Width 14.6 % (11.5-14.5); Red Blood Cell (RBC) Count 3.13 mill/uL (4.70-6.10); White Blood Cell (WBC) Count 10.7 thou/uL (4.8-10.8)
[2019-09-10] MEDS: Mometasone/Formoterol 120 PUFF INHALER INH SCH ×2 (08:03→18:45)
[2019-09-10] MEDS: Carvedilol 6.25 MG TAB PO SCH ×2 (08:17→20:29)
[2019-09-10] MEDS: Fish Oil 1,000 MG CAP PO SCH (08:18)
[2019-09-10] MEDS: Clopidogrel Bisulfate 75 MG TAB PO SCH (08:18)
[2019-09-10] MEDS: Isosorbide Mononitrate (ER) 30 MG TAB PO SCH (08:18)
[2019-09-10] MEDS: Montelukast Sodium 10 mg Tablet PO SCH (08:19)
[2019-09-10] MEDS: Lactinex Tablet PO SCH (08:19)
[2019-09-10] MEDS: Ubidecarenone 50 MG CAP PO SCH (08:19)
[2019-09-10] MEDS: Pantoprazole 40 MG VIAL IVP SCH ×2 (08:19→20:28)
[2019-09-10] MEDS: Spironolactone 25 MG TAB PO SCH (08:19)
[2019-09-10 08:27] LABS: ALT (SGPT) 13 U/L (8-55); AST (SGOT) 15 U/L (5-34); Alkaline Phosphatase 78 U/L (40-110); BUN (Urea Nitrogen) 22 mg/dL (8.4-25.7); Calc. Creatinine Clearance 49 mL/min (70-130); Calcium 8.2 mg/dL (7.8-10.44); Carbon Dioxide 23 mmol/L (23-31); Estimated GFR-MDRD 60; Glucose 93 mg/dL (83-110)
--- NOTE | 2019-09-10 09:47 | PRG ---
DATE OF SERVICE: 09/10/2019 SUBJECTIVE: This morning, he is doing better. His H and H are stabilized.no gi bleeding No pain or discomfort. No shortness of breath. OBJECTIVE: VITAL SIGNS: Saturations 100% on room air, pulse 69, blood pressure 117/73, respirations 18. CHEST: No wheezing or crackles. CARDIAC: Normal S1, S2. No gallops. ABDOMEN: No mass. ASSESSMENT AND PLAN: 1. Gastrointestinal bleed, stable. 2. Congestive heart failure. 3. Asthma. 4. Chronic obstructive pulmonary disease, stable. Disposition as per GI. He can go home at any time, Pulmonary blake. Job ID: [id number] MTDD
[2019-09-10 10:58] LABS: Chloride 106 mmol/L (98-107); Potassium 4.2 mmol/L (3.5-5.1); Sodium 134 mmol/L (136-145)
[2019-09-10 11:00] LABS: Anion Gap 10 mmol/L (10-20)
--- NOTE | 2019-09-10 14:17 | PDOC.EVN ---
Event Note - Event Note Event Note: Hg stable, no evidece for further GI bleeding, move to regular bed
[2019-09-10] MEDS: Acetaminophen 325 MG TAB PO PRN (17:39)
--- NOTE | 2019-09-10 20:12 | PRG ---
DATE OF SERVICE: 09/10/2019 SUBJECTIVE: Mr. Limon had one dark stool today. He has no abdominal pain or nausea or vomiting. He is tolerating a solid diet that does not have much of an appetite. OBJECTIVE: VITAL SIGNS: Temperature is 97.5, pulse 71, blood pressure 110/65. GENERAL: He is in no acute distress. Awake and alert. LUNGS: Clear to auscultation bilaterally. HEART: Regular rate and rhythm without murmur. ABDOMEN: Soft, nontender, nondistended. Bowel sounds are present. EXTREMITIES: Trace lower extremity edema. LABORATORY DATA: White blood cell count 10.7, hemoglobin 10.1, creatinine 1.17. IMPRESSION: 1. Gastrointestinal bleed secondary to duodenal ulcer, status post electrocautery of visible vessel. 2. Anemia of acute blood loss. 3. Acute renal failure, improved. 4. Atrial fibrillation. 5. Coronary artery disease. He has a history of multiple stents, however, his last stent was placed 2 or 3 years ago. He has been placed back on Plavix. RECOMMENDATIONS: 1. Avoid all NSAIDs. 2. Proton-pump inhibitor twice daily. 3. Likely restart anticoagulation in the 14 days. 4. I will sign off for now. Please call if GI can be of assistance. Job ID: [id number]
[2019-09-10] MEDS: Melatonin 3 MG TAB PO SCH (20:30)
[2019-09-10] MEDS: Zolpidem Tartrate 5 MG TAB PO PRN (20:36)
[2019-09-11] MEDS: Mometasone/Formoterol 120 PUFF INHALER INH SCH ×2 (07:14→20:04)
[2019-09-11] MEDS: Carvedilol 6.25 MG TAB PO SCH ×2 (08:08→21:33)
[2019-09-11] MEDS: Montelukast Sodium 10 mg Tablet PO SCH (08:09)
[2019-09-11] MEDS: Lactinex Tablet PO SCH (08:09)
[2019-09-11] MEDS: Spironolactone 25 MG TAB PO SCH (08:09)
[2019-09-11] MEDS: Isosorbide Mononitrate (ER) 30 MG TAB PO SCH (08:09)
[2019-09-11] MEDS: Clopidogrel Bisulfate 75 MG TAB PO SCH (08:09)
[2019-09-11] MEDS: Pantoprazole 40 MG VIAL IVP SCH ×2 (08:10→21:35)
[2019-09-11] MEDS: Fish Oil 1,000 MG CAP PO SCH (08:10)
[2019-09-11] MEDS: Ubidecarenone 50 MG CAP PO SCH (11:28)
[2019-09-11 14:10] LABS: #Eosinphils 0.4 thou/uL (0.0-0.7); #Monocytes 1.1 thou/uL (0.11-0.59); #Neutrophils 7.5 thou/uL (1.40-6.50); %Basophils 0.2 % (0.0-1.0); %Eosinophils 3.6 % (0.0-10.0); %Lymphocytes 9.9 % (21.0-51.0); %Monocytes 11.4 % (0.0-10.0); %Neutrophils 74.9 % (42.0-75.0); Hemoglobin 10.4 g/dL (14.0-18.0); Mean Corpuscular HGB CONC 32.6 g/dL (32.0-36.0); Mean Corpuscular Hemoglobin 31.6 pg (27.0-31.0); Mean Corpuscular Volume 96.8 fL (78.0-98.0); Mean Platelet Volume 7.8 fL (7.4-10.4); Platelet Count 215 thou/uL (130-400); RBC Distribution Width 14.5 % (11.5-14.5)
--- NOTE | 2019-09-11 14:54 | PDOC.HOSPP ---
- Subjective Encounter Date: 09/11/19 Encounter Time: 14:52 Subjective: alert, no bleeding - Objective Vital Signs & Weight: Vital Signs (12 hours) Temp Pulse Resp BP BP Pulse Ox 09/11/19 08:08 109/67 09/11/19 08:00 98 09/11/19 07:56 98.2 F 87 20 109/67 98 09/11/19 06:12 97.7 F 75 18 129/67 100 Weight Weight 166 lb 8 oz Most Recent Monitor Data Heart Rate from ECG 63 NIBP 130/62 NIBP BP-Mean 84 Respiration from ECG 18 SpO2 99 I&O: 09/10/19 09/11/19 09/12/19 06:59 06:59 06:59 Intake Total 1840 1380 240 Output Total 550 400 Balance 1290 980 240 Result Diagrams: 09/11/19 13:27 09/10/19 07:29 Hospitalist ROS - Medication Medications: Active Medications Generic Name Dose Route Start Last Admin Trade Name Freq PRN Reason Stop Dose Admin Acetaminophen 650 mg 09/04/19 21:13 09/10/19 17:39 Tylenol PO 650 mg Q6H PRN Administration Mild Pain (1-3) Acidophilus 1 tab 09/06/19 09:00 09/11/19 08:09 Floranex PO 1 tab DAILY NENA Administration Carvedilol 6.25 mg 09/05/19 21:00 09/11/19 08:08 Coreg PO 6.25 mg BID NENA Administration Cholecalciferol 300 units 09/06/19 09:00 09/11/19 08:09 Vitamin D3 PO 300 units DAILY NENA Administration Clopidogrel Bisulfate 75 mg 09/06/19 09:00 09/11/19 08:09 Plavix PO 75 mg DAILY NENA Administration Coenzyme Q10 100 mg 09/06/19 09:00 09/11/19 11:28 Coenzyme Q10 PO Not Given DAILY NENA Fish Oil 1,000 mg 09/06/19 09:00 09/11/19 08:10 Fish Oil PO 1,000 mg DAILY NENA Administration Isosorbide Mononitrate 30 mg 09/06/19 09:00 09/11/19 08:09 Imdur Er PO 30 mg DAILY NENA Administration Melatonin 1.5 mg 09/05/19 21:00 09/10/19 20:30 Melatonin PO 1.5 mg HS NENA Administration Mometasone Furoate/Formoterol Fumar 2 puff 09/06/19 18:30 09/11/19 07:14 Dulera 200 Mcg/5 Mcg Inhaler INH 2 puff BID-RT NENA Administration Montelukast Sodium 10 mg 09/06/19 09:00 09/11/19 08:09 Singulair PO 10 mg DAILY NENA Administration Pantoprazole Sodium 40 mg 09/08/19 21:00 09/11/19 08:10 Protonix IVP 40 mg Q12HR NENA Administration Ranolazine 500 mg 09/05/19 21:00 09/11/19 08:09 Ranexa PO 500 mg BID NENA Administration Sodium Chloride 10 ml 09/09/19 18:14 09/11/19 08:10 Flush - Normal Saline IVF 10 ml PRN PRN Administration Saline Flush Spironolactone 25 mg 09/06/19 09:00 09/11/19 08:09 Aldactone PO 25 mg DAILY NENA Administration Zolpidem Tartrate 5 mg 09/04/19 23:09 09/10/19 20:36 Ambien PO 5 mg HS PRN Administration Insomnia - Exam Neck: no JVD Heart: no murmur, irregular Respiratory: CTAB Gastrointestinal: soft, normal bowel sounds Extremities: no edema Hosp A/P (1) Peptic ulcer disease Code(s): K27.9 - PEPTIC ULC, SITE UNSP, UNSP AC OR CHR, W/O HEMOR OR PERF Status: Acute (2) Acute blood loss anemia Code(s): D62 - ACUTE POSTHEMORRHAGIC ANEMIA Status: Acute (3) Atrial fibrillation Code(s): I48.91 - UNSPECIFIED ATRIAL FIBRILLATION Status: Acute Qualifiers: Atrial fibrillation type: unspecified Qualified Code(s): I48.91 - Unspecified atrial fibrillation (4) GI bleed Code(s): K92.2 - GASTROINTESTINAL HEMORRHAGE, UNSPECIFIED Status: Acute Qualifiers: GI bleed type/associated pathology: duodenal ulcer Qualified Code(s): K26.4 - Chronic or unspecified duodenal ulcer with hemorrhage - Plan Hg stable > 10 cont PPI bid po no antocoagulation for 14 more days rehab transfer pending
[2019-09-11] MEDS: Melatonin 3 MG TAB PO SCH (21:34)
[2019-09-11] MEDS: Zolpidem Tartrate 5 MG TAB PO PRN (21:40)
[2019-09-12] MEDS: Mometasone/Formoterol 120 PUFF INHALER INH SCH (06:45)
[2019-09-12 07:50] VITALS: TEMP 98.3
[2019-09-12] MEDS: Carvedilol 6.25 MG TAB PO SCH (08:40)
[2019-09-12] MEDS: Lactinex Tablet PO SCH (08:40)
[2019-09-12] MEDS: Fish Oil 1,000 MG CAP PO SCH (08:40)
[2019-09-12] MEDS: Spironolactone 25 MG TAB PO SCH (08:40)
[2019-09-12] MEDS: Isosorbide Mononitrate (ER) 30 MG TAB PO SCH (08:40)
[2019-09-12] MEDS: Montelukast Sodium 10 mg Tablet PO SCH (08:40)
[2019-09-12] MEDS: Ubidecarenone 50 MG CAP PO SCH (08:40)
[2019-09-12] MEDS: Clopidogrel Bisulfate 75 MG TAB PO SCH (08:41)
[2019-09-12] MEDS: Pantoprazole 40 MG VIAL IVP SCH (08:41)
[2019-09-12 08:46] VITALS: BP 124/67
--- NOTE | 2019-09-12 13:13 | DIS ---
DATE OF ADMISSION: 09/04/2019 DATE OF DISCHARGE: 09/12/2019 [facility] Call admission for Steven. DISPOSITION: Discharged to rehab. FINAL DIAGNOSES: 1. Gastrointestinal hemorrhage. 2. Peptic ulcer disease. 3. Chronic anticoagulation. 4. Atrial fibrillation. 5. Acute post hemorrhagic anemia. 6. Acute kidney injury, resolved. 7. Lactic acidosis, resolved. DISCHARGE MEDICATIONS: 1. Ranexa 500 mg twice a day. 2. Plavix 75 mg a day. 3. Montelukast 10 mg a day. 4. Spironolactone 25 mg a day. 5. Imdur 30 mg a day. 6. Ambien 5 mg at bedtime p.r.n. 7. Coreg 6.25 mg twice a day. 8. Melatonin 1 mg at bedtime. 9. [place]-3 fatty acids. 10. Vitamin D3. 11. Protonix 40 mg twice a day. 12. Dulera 200/5 two puffs b.i.d. ALLERGIES: 1. AMOXICILLIN. 2. CEPHALOSPORINS. 3. CODEINE. 4. HYDROCODONE. DIET: Heart healthy. PENDING AT TIME OF DISCHARGE: Nothing. CODE STATUS: Full. HOSPITAL COURSE: The patient was admitted to the [facility] through [facility] with gastrointestinal bleeding. His history was significant for atrial fibrillation, hypertension, coronary artery disease. He was on an anticoagulant, Xarelto was held. He was seen in consultation by Dr. Boni Jarvis, Gastroenterology. He received Kcentra in the emergency room to reverse the Xarelto. Protein pump inhibitor IV drip was started. All NSAIDs were stopped. His laboratory, initial hemoglobin 9.4. Serial was done within 36 hours, it dropped down to 6.5 and required transfusion. On 09/07/2019, he was taken to the endoscopy suite. He had an EGD with biopsy. There were 2 linear ulcerations in the duodenum, did receive bipolar cauterization. A biopsy was obtained. The biopsy subsequently has shown no Helicobacter. The patient has been transitioned from IV drip PPI to Protonix IV q.12 hours to now Protonix 40 mg twice a day. He is being transferred to rehab for PT, OT. He is to continue off his Xarelto for 13 more days. He is continued on Plavix with no further GI bleeding. His hemoglobin on 09/08 at 10.0, on 09/09 at 8.9, on 09/09 at 9.2, on 09/10 at 10.1, on 09/11 at 10.4. His chemistries are unremarkable. The patient will need monitoring of his hemoglobin p.r.n. and once a week at this time. He is to follow up with his PCP post rehab. His Xarelto can be started on 09/25/2019, it is 15 mg p.o. at bedtime. The patient needs followup also with Gastrointestinal group. Job ID: [id number]
[2019-09-12 15:41] VITALS: BMI 21.4
== END 2019-09-12 17:58 | DRG 378 ==
LOC: ERS 11:31 → T4-A 16:25 → IMCU/EMU 09-05 16:30 → T4-A 09-10 19:30
PROVIDERS: ADMIT Internal Medicine; ATTEND Internal Medicine
PROC: 0DB68ZX Excision of Stomach, Via Natural or Artificial Opening Endoscopic, Diagnostic (ICD-10-PCS; principal; 2019-09-07)
PROC: 0W3P8ZZ Control Bleeding in Gastrointestinal Tract, Via Natural or Artificial Opening Endoscopic (ICD-10-PCS; 2019-09-07)
DX: K26.4 Chronic or unspecified duodenal ulcer with hemorrhage (principal); D62 Acute posthemorrhagic anemia; N17.9 Acute kidney failure, unspecified; I48.91 Unspecified atrial fibrillation; I25.10 Atherosclerotic heart disease of native coronary artery without angina pectoris; I11.0 Hypertensive heart disease with heart failure; I50.9 Heart failure, unspecified; J44.9 Chronic obstructive pulmonary disease, unspecified; Z96.651 Presence of right artificial knee joint; I25.2 Old myocardial infarction; Z88.1 Allergy status to other antibiotic agents; Z88.0 Allergy status to penicillin; Z79.01 Long term (current) use of anticoagulants; Z88.8 Allergy status to other drugs, medicaments and biological substances; Z86.73 Personal history of transient ischemic attack (TIA), and cerebral infarction without residual deficits
CPT/HCPCS: 36415; 36416; 36430; 71045; 80048; 80053; 82274; 83605; 85025; 85610; 85730; 86850; 86900; 86901; 88305; 88312; 93005; 94664; 96365; 96366; 96374; 96375; 99215; C9113; C9132; G0463; J2704; J3490; P9016

== ENCOUNTER 2020-04-14 13:03 | Outpatient (CLI) | payer MEDICARE, OTHER ==
--- NOTE | 2020-04-14 15:21 | RAD ---
RIGHT SHOULDER 3 VIEWS: HISTORY: Shoulder pain. FINDINGS: There are severe arthritic changes of the shoulder. There is marked glenohumeral degenerative joint space narrowing. Humeral head is high-riding directly abutting the undersurface of the acromion cons istent with a chronic rotator cuff tear. 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 IMPRESSION: Severe arthritic changes of the shoulder. POS: [facility]
== END 2020-04-14 13:04 | disposition home or self-care (01) ==
LOC: BICRAD 13:03
PROVIDERS: ATTEND Internal Medicine Rheumatology
DX: M25.511 Pain in right shoulder (principal); M19.011 Primary osteoarthritis, right shoulder

== ENCOUNTER 2020-12-23 11:26 | Outpatient (CLI) | payer MEDICARE, OTHER ==
--- NOTE | 2020-12-23 11:51 | RAD ---
EXAM: Chest PA and lateral: HISTORY: Shortness of breath, cough. COMPARISON: 09/06/2018, 09/06/2019 FINDINGS: Heart: Normal cardiac silhouette Aorta: Atherosclerosis Pulmonary vessels: Normal Costophrenic angles: Costophrenic angles are clear. Lungs: Chronic changes of the lung parenchyma without mass or consolidation. Lungs are hyperinflated. Pneumothorax: No pneumothorax Osseous structures: No osseous abnormalities IMPRESSION: COPD. Chronic lung parenchymal changes
== END 2020-12-23 11:27 | disposition home or self-care (01) ==
LOC: BICRAD 11:26
PROVIDERS: ATTEND Specialist
DX: R06.02 Shortness of breath (principal); J44.9 Chronic obstructive pulmonary disease, unspecified
CPT/HCPCS: 71046

== ENCOUNTER 2021-08-11 15:17 | Outpatient (CLI) | payer MEDICARE, OTHER | END 2021-08-11 15:18 | disposition home or self-care (01) | LOC: BICULT 15:17 | PROVIDERS: ATTEND Urology | DX: N18.9 Chronic kidney disease, unspecified (principal) | CPT/HCPCS: 76770 ==

== ENCOUNTER 2022-04-29 09:56 | Outpatient (CLI) | payer MEDICARE, OTHER | END 2022-04-29 09:57 | disposition home or self-care (01) | LOC: BICRAD 09:56 | PROVIDERS: ATTEND Internal Medicine | DX: R06.02 Shortness of breath (principal); I51.7 Cardiomegaly | CPT/HCPCS: 71046 ==